=== PATIENT | female | born 2000 | race Hispanic/Latino ===

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

== ENCOUNTER 2021-03-16 23:25 | Outpatient (CLI) | payer MEDICAID ==
[2021-03-16 23:52] VITALS: BP 129/78
[2021-03-17] MEDS ORDERED: LACTATED RINGERS 1,000 ML IV ONE (00:02)
[2021-03-17 00:28] LABS: Bilirubin,Urine NEG (Negative); Blood,Urine NEG (Negative); Color,Urine Colorless (Yellow); Protein,Urine <15 mg/dL mg/dL (Negative); RBC,Urine < 1.0 /HPF (0.0-6.0); Urobilinogen,Urine < 2.0 mg/dL (<2.0); WBC,Urine < 1.0 /HPF (0.0-6.0)
[2021-03-17] MEDS ORDERED: TERBUTALINE 1 MG/1 ML INJ SUB-Q PRN (00:48)
--- NOTE | 2021-03-17 02:22 | Ultrasound Report ---
ULTRASOUND OBSTETRIC LIMITED ULTRASOUND BIOPHYSICAL PROFILE INDICATION / CLINICAL INFORMATION: no movements. RENARD. Clinical Gestational Age (GA) in weeks, days: 33, 3 TECHNIQUE: Transabdominal. COMPARISON: None available. FINDINGS: BREATHING MOVEMENT = 2 GROSS BODY MOVEMENT = 2 TONE = 2 QUALITATIVE AMNIOTIC FLUID VOLUME = 2 TOTAL BIOPHYSICAL SCORE = 8/8 HEART RATE (beats per minute): 135 AMNIOTIC FLUID INDEX (cm) = 12.5 (normal = 7-24 cm) PRESENTATION: Cephalic. ADDITIONAL FINDINGS: None. IMPRESSION: 1. Biophysical Score = 8/8 2. Normal amniotic fluid index. Signer Name: Yissel Malik MD Signed: 03/17/2021 2:18 AM Workstation Name: [id number]
== END 2021-03-17 02:30 | disposition home or self-care (01) ==
LOC: TRG 23:25 → APU 23:34 → TRG 03-17 02:30
PROVIDERS: ATTEND Obstetrics & Gynecology
DX: O36.8130 Decreased fetal movements, third trimester, not applicable or unspecified (principal); O26.893 Other specified pregnancy related conditions, third trimester; R10.30 Lower abdominal pain, unspecified; Z3A.33 33 weeks gestation of pregnancy
CPT/HCPCS: 59025; 76815; 76819; 81001; 96360; 96372; J3105; J7120

== ENCOUNTER 2021-03-26 08:50 | Outpatient (CLI) | payer MEDICAID ==
[2021-03-26 09:17] VITALS: BP 133/71
[2021-03-26] MEDS ORDERED: LACTATED RINGERS 500 ML IV ONE (09:38)
[2021-03-26] MEDS ORDERED: LACTATED RINGERS 1,000 ML IV SCH (09:45)
[2021-03-26 10:28] LABS: Bilirubin,Urine NEG (Negative); Blood,Urine NEG (Negative); Color,Urine Yellow (Yellow); Protein,Urine <15 mg/dL mg/dL (Negative); Urobilinogen,Urine < 2.0 mg/dL (<2.0)
== END 2021-03-26 13:19 | disposition home or self-care (01) ==
LOC: TRG 08:50 → APU 08:52 → TRG 13:19
PROVIDERS: ATTEND Obstetrics & Gynecology
DX: O62.9 Abnormality of forces of labor, unspecified (principal); O26.893 Other specified pregnancy related conditions, third trimester; R10.9 Unspecified abdominal pain; Z3A.34 34 weeks gestation of pregnancy; Z87.891 Personal history of nicotine dependence
CPT/HCPCS: 59025; 81001; 96360

== ENCOUNTER 2021-05-01 10:52 | Outpatient (CLI) | payer MEDICAID ==
[2021-05-01 11:15] VITALS: BP 122/71
== END 2021-05-01 13:12 | disposition home or self-care (01) ==
LOC: TRG 10:52 → APU 10:52 → TRG 13:12
PROVIDERS: ATTEND Student in an Organized Health Care Education/Training Program
DX: Z34.93 Encounter for supervision of normal pregnancy, unspecified, third trimester (principal); Z3A.39 39 weeks gestation of pregnancy
CPT/HCPCS: 59025

== ENCOUNTER 2021-05-05 12:24 | Outpatient (CLI) | payer MEDICAID ==
[2021-05-05 13:02] VITALS: BP 138/72
--- NOTE | 2021-05-05 14:41 | Ultrasound Report ---
ULTRASOUND OBSTETRIC LIMITED ULTRASOUND BIOPHYSICAL PROFILE INDICATION / CLINICAL INFORMATION: Decelerations in the office. Clinical Gestational Age (GA): 40.3 weeks.days COMPARISON: 03/17/21. FINDINGS: BREATHING MOVEMENT = 2 GROSS BODY MOVEMENT = 2 TONE = 2 QUALITATIVE AMNIOTIC FLUID VOLUME = 2 TOTAL BIOPHYSICAL SCORE = 8/8 HEART RATE (beats per minute): Variable at 131 through 149 bpm. AMNIOTIC FLUID INDEX (cm) = 8.6 (normal = 7-24 cm) PRESENTATION: Cephalic. ADDITIONAL FINDINGS: None. IMPRESSION: 1. Biophysical Score = 8/8 2. RENARD 8.6 cm. 3. Variable heart rate. Signer Name: Darren Fagan MD Signed: 05/05/2021 2:37 PM Workstation Name: [email or web address]
== END 2021-05-05 15:35 | disposition home or self-care (01) ==
LOC: TRG 12:24 → APU 12:25 → TRG 15:35
PROVIDERS: ATTEND Obstetrics & Gynecology
DX: Z34.93 Encounter for supervision of normal pregnancy, unspecified, third trimester (principal); Z3A.40 40 weeks gestation of pregnancy
CPT/HCPCS: 36415; 59025; 76815; 76819; 84112

== ENCOUNTER 2021-05-05 22:21 | Inpatient (IN) | payer MEDICAID ==
[2021-05-05] MEDS ORDERED: fentaNYL 100 MCG/2 ML INJ IV PRN (23:33)
[2021-05-05] MEDS ORDERED: OXYTOCIN 10 UNIT/1 ML INJ IM PRN (23:33)
[2021-05-05] MEDS ORDERED: AMPICILLIN/NS 2 GM/100 ML 2 GM/100 ML BAG IV ONE (23:33)
[2021-05-05] MEDS ORDERED: LIDOCAINE (2%) 20 MG/1 ML VIAL 20 ML MDV INFILTRATI ONE (23:33)
[2021-05-05] MEDS ORDERED: MINERAL OIL 30 ML ORAL LIQD PO PRN (23:33)
[2021-05-05] MEDS ORDERED: ePHEDrine SULFATE 50 MG/1 ML INJ IV PRN (23:33)
[2021-05-05] MEDS ORDERED: miSOPROStol 200 MCG TAB PR PRN (23:33)
[2021-05-05] MEDS ORDERED: BUTORPHANOL 2 MG/1 ML INJ IV PRN (23:33)
[2021-05-05] MEDS ORDERED: METHYLERGONOVINE MALEATE 0.2 MG/ML VIAL IM PRN (23:33)
[2021-05-05] MEDS ORDERED: CARBOPROST TROMETHAMINE 250 MCG/1 ML INJ IM PRN (23:33)
[2021-05-05] MEDS ORDERED: LOPERAMIDE 2 MG CAP PO PRN (23:33)
[2021-05-05] MEDS ORDERED: TERBUTALINE 1 MG/1 ML INJ SUB-Q PRN (23:33)
[2021-05-05] MEDS ORDERED: ACETAMINOPHEN 325 MG TAB PO PRN (23:33)
[2021-05-05] MEDS ORDERED: OXYTOCIN DRIP 30 UNITS/500 ML BAG IV SCH (23:45)
--- NOTE | 2021-05-06 00:12 | History and Physical Report ---
History of Present Illness Date of examination: 05/05/21 Date of admission: 05/05/2021 Chief complaint: "water broke" History of present illness: 21 yo, G1 @ 40.4 wks, initiated care with [facility] at 11.2 wks gestation. Her has been complicated by limited care, anemia, bipolar disorder and Rh negative status. She presents to [facility] with reports of "leaking fluids since 2229 tonight". Reports + FM. Denies any VB. Labs: AB negative, antibody negative; HBsAg negative; Hep C negative; rubella immune; VDRL negative; HIV negative; PAP normal; GC/Chlamydia negative; MSAFP/Multiple marker negative; 1 hr gtt - not completed; GBS unknown. Past History Past Medical History: other (Anxiety; Bipolar disorder) Past Surgical History: no surgical history Family/Genetic History: none Social history: single, full code. denies: smoking, alcohol abuse, prescription drug abuse, IV drug use - Obstetrical History Expected Date of Delivery: 05/02/21 Actual Gestation: 40 Week(s) 4 Day(s) : 1 Para: 0 Hx # Term Pregnancies: 0 Number of Pregnancies: 0 Spontaneous Abortions: 0 Induced : 0 Number of Living Children: 0 Medications and Allergies Allergies Allergy/AdvReac Type Severity Reaction Status Date / Time No Known Allergies Allergy Verified 03/17/21 00:04 Home Medications Medication Instructions Recorded Confirmed Last Taken Type One Daily Tablet 1 tab PO DAILY 05/05/21 05/05/21 05/04/21 History Active Meds: Active Medications Acetaminophen (Acetaminophen 325 Mg Tab) 650 mg PO Q4H PRN PRN Reason: Pain, Mild (1-3) Butorphanol Tartrate (Butorphanol 2 Mg/1 Ml Inj) 1 mg IV Q2H PRN PRN Reason: Pain, Moderate(4-6) LABOR PAIN Carboprost Tromethamine (Carboprost Tromethamine 250 Mcg/1 Ml Inj) 250 mcg IM ONCE PRN PRN Reason: Uterine Bleeding Ephedrine Sulfate (Ephedrine Sulfate 50 Mg/1 Ml Inj) 10 mg IV Q2M PRN PRN Reason: Hypotension Fentanyl (Fentanyl 100 Mcg/2 Ml Inj) 100 mcg IV Q2H PRN PRN Reason: Pain,Severe (7-10) LABOR PAIN Lactated Ringer's (Lactated Ringers) 1,000 mls @ 125 mls/hr IV DIRECT SEJAL Oxytocin/Sodium Chloride (Pitocin/Ns 30 Unit/500ml) 30 units in 500 mls @ 40 mls/hr IV TITR SEJAL; Protocol Ampicillin Sodium (Ampicillin/Ns 2 Gm/100 Ml) 2 gm in 100 mls @ 100 mls/hr IV ONCE ONE; Protocol Stop: 05/06/21 00:32 Ampicillin Sodium (Ampicillin/Ns 1 Gm/50 Ml) 1 gm in 50 mls @ 100 mls/hr IV Q4H SEJAL; Protocol Loperamide HCl (Loperamide 2 Mg Cap) 2 mg PO ONCE PRN PRN Reason: give with Hemabate Methylergonovine Maleate (Methylergonovine Maleate 0.2 Mg/Ml Vial) 0.2 mg IM ONCE PRN PRN Reason: Uterine Bleeding Mineral Oil (Mineral Oil 30 Ml Oral Liqd) 30 ml PO QHS PRN PRN Reason: Constipation Misoprostol (Misoprostol 200 Mcg Tab) 800 mcg UT ONCE PRN PRN Reason: Uterine Bleeding Ondansetron HCl (Ondansetron 4 Mg/2 Ml Inj) 4 mg IV Q8H PRN PRN Reason: Nausea And Vomiting Oxytocin (Oxytocin 10 Unit/1 Ml Inj) 10 unit IM ONCE PRN PRN Reason: Uterine Bleeding Terbutaline Sulfate (Terbutaline 1 Mg/1 Ml Inj) 0.25 mg SUB-Q ONCE PRN PRN Reason: Hyperstimulation/Hypertonicity Review of Systems All systems: negative Genitourinary: leakage of fluid (clear fluid) - Vital Signs Vital signs: Vital Signs Pulse Pulse Ox 76 98 05/05/21 23:06 05/05/21 23:06 Temp Pulse Resp BP Pulse Ox 98.1 F 82 18 118/74 99 05/05/21 23:07 05/05/21 23:56 05/05/21 23:07 05/05/21 23:08 05/05/21 23:56 - Physical Exam Breasts: Positive: normal Cardiovascular: Regular rate Lungs: Positive: Normal air movement Abdomen: Positive: other (gravid) Genitourinary (Female): Positive: normal external genitalia, normal perenium Vagina: Positive: other (leaking clear fluid) Uterus: Positive: enlarged (S<D) Extremities: Positive: normal Deep Tendon Reflex Grade: Normal +2 - Obstetrical FHR: category 1 Uterine Contraction Monitor Mode: External Cervical Dilatation: 1 (per RN) Cervical Effacement Percentage: 70 station: -3 Uterine Contraction Frequency (min): 2-4 Uterine Contraction Pattern: Irregular Uterine Tone Measurement Phase: Resting Uterine Contraction Intensity: Mild Results All other labs normal. Assessment and Plan - Patient Problems (1) SROM (spontaneous rupture of membranes) Current Visit: Yes Status: Acute Plan to address problem: Admit to L&D Pain meds as desired per orders Anticipate (2) GBS screening not performed Current Visit: Yes Status: Acute Plan to address problem: Initiate GBS prophylaxis (3) Bipolar 1 disorder Current Visit: Yes Status: Acute (4) Post-dates Current Visit: Yes Status: Acute
[2021-05-06 00:19] LABS: Hematocrit 29.6 % (30.3-42.9); Mean Corpuscular HGB Conc 34 % (30-34); Mean Corpuscular Volume 85 fl (79-97); Platelet Count 251 K/mm3 (140-440); Red Blood Count 3.48 M/mm3 (3.65-5.03); Red Cell Distribution Width 14.6 % (13.2-15.2)
[2021-05-06] MEDS: LACTATED RINGERS 1,000 ML IV SCH ×2 (01:33→05:55)
[2021-05-06] MEDS: ONDANSETRON 4 MG/2 ML INJ IV PRN ×2 (02:37→08:14)
[2021-05-06] MEDS ORDERED: AMPICILLIN/NS 1 GM/50 ML 1 GM/50 ML BAG IV SCH (04:00)
[2021-05-06] MEDS ORDERED: ePHEDrine SULFATE 50 MG/1 ML INJ IV PRN (05:57)
[2021-05-06] MEDS ORDERED: NALOXONE 2 MG/2 ML INJ IV PRN (05:57)
[2021-05-06] MEDS ORDERED: fentaNYL-BUPIV 2 MCG/ML-0.125% 200 MCG/100 ML BAG EPIDURAL SCH (06:00)
--- NOTE | 2021-05-06 06:00 | Anesthesia Consultation ---
Anesthesia Consult and Med Hx Date of service: 05/06/21 - Airway Anesthetic Teeth Evaluation: Poor ROM Head & Neck: Adequate Mental/Hyoid Distance: Adequate Mallampati Class: Class II Intubation Access Assessment: Good - Pulmonary Exam CTA: Yes - Cardiac Exam Cardiac Exam: RRR - Pre-Operative Health Status ASA Pre-Surgery Classification: ASA2 Proposed Anesthetic Plan: Epidural - Pulmonary Hx Smoking: No Hx Asthma: No Hx Respiratory Symptoms: No SOB: No COPD: No Home Oxygen Therapy: No Hx Pneumonia: No Hx Sleep Apnea: No - Cardiovascular System Hx Hypertension: No Hx Coronary Artery Disease: No Hx Heart Attack/AMI: No Hx Angina: No Hx Percutaneous Transluminal Coronary Angioplasty (PTCA): No Hx Cardia Arrhythmia: No Hx Pacemaker: No Hx Internal Defibrillator: No Hx Valvular Heart Disease: No Hx Heart Murmur: No Hx Peripheral Vascular Disease: No - Central Nervous System Hx Neuromuscular Disorder: No Hx Seizures: No CVA: No Hx Back Pain: Yes Hx Psychiatric Problems: Yes (Bipolar, anixety) - Gastrointestinal Hx Ulcer: No Hx Gastroesophageal Reflux Disease: Yes - Endocrine Hx Renal Disease: No Hx End Stage Renal Disease: No Hx Cirrhosis: No Hx Liver Disease: No Hx Insulin Dependent Diabetes: No Hx Non-Insulin Dependent Diabetes: No Hx Thyroid Disease: No Hx Hypothyroidism: No Hx Hyperthyroidism: No - Hematic Hx Anemia: No Hx Sickle Cell Disease: No - Other Systems Hx Alcohol Use: No Hx Substance Use: No Hx Cancer: No Hx Obesity: No
[2021-05-06] MEDS ORDERED: OXYTOCIN DRIP 30 UNITS/500 ML BAG IV SCH ×2 (09:00→17:56)
[2021-05-06 10:28] LABS: Amphetamine Screen,Urine Negative; Benzodiazepines Screen,Urine Negative; Cocaine Screen,Urine Negative; Methadone Screen,Urine Negative; Opiate Screen,Urine Negative
[2021-05-06 11:01] LABS: Cannabinoid Screen,Urine Positive
--- NOTE | 2021-05-06 11:28 | Event Note ---
Date: 05/06/21 Pt comfortable with epidural. Category II tracing. Cervix: /-2. Head well- applied. Continue pitocin augmentation. Continue to monitor maternal and status.
[2021-05-06] MEDS ORDERED: FAMOTIDINE 20 MG/2 ML INJ IV SCH (12:00)
[2021-05-06] MEDS ORDERED: METOCLOPRAMIDE 10 MG/2 ML INJ IV PRN (12:38)
--- NOTE | 2021-05-06 15:27 | Procedure Note ---
OB Delivery Note - Delivery Date of Delivery: 05/06/21 Surgeon: RAQUEL PANTOJA Estimated blood loss: other (600 mL) - Vaginal Delivery presentation: vertex Delivery position: OA Intrapartum events: decreased FHT variability, uterine atony (s/p Methergine 0.2 mg IM ) Delivery augmentation: pitocin Delivery monitor: external FHT, external uterine Route of delivery: Delivery placenta: spontaneous Episiotomy: none Delivery laceration: 1st degree (right vaginal, left periurethral, repaired with 2-0 Chromic in a standard fashion ) Delivery repair: chromic Anesthesia: epidural - Infant A at 1 minute: 8 at 5 minutes: 9 Infant Gender: Female (3029g (6lb 11oz) @ 1447 pm)
[2021-05-06] MEDS ORDERED: PROMETHAZINE 25 MG TAB PO PRN (17:56)
[2021-05-06] MEDS ORDERED: WITCH HAZEL/ GLYCERIN PAD TP PRN (17:56)
[2021-05-06] MEDS ORDERED: BENZOCAINE/MENTHOL 20/0.5% TOP SPRAY 56 GM TP PRN (17:56)
[2021-05-06] MEDS ORDERED: LANOLIN/ZINC/DIMETHICONE (LANSINOH) 7 GM TP PRN ×2 (17:56)
[2021-05-06] MEDS ORDERED: ONDANSETRON 4 MG/2 ML INJ IV PRN (17:56)
[2021-05-06] MEDS ORDERED: diphenhydrAMINE 25 MG CAP PO PRN (17:56)
[2021-05-06] MEDS ORDERED: HYDROcodone/ACETAMINOPHEN 5-325 MG TAB PO PRN (17:56)
[2021-05-06] MEDS ORDERED: IBUPROFEN 600 MG TAB PO SCH (17:56)
[2021-05-06] MEDS ORDERED: MAGNESIUM HYDROXIDE (MOM) ORAL LIQD UDC PO PRN (17:56)
[2021-05-06] MEDS ORDERED: PROMETHAZINE 25 MG RECT SUPP PR PRN (17:56)
--- NOTE | 2021-05-06 22:37 | Post Anesthesia Evaluation ---
- Post Anesthesia Evaluation Patient Participated: Yes Airway Patent: Yes Stable Respiratory Function: Yes Nausea/Vomiting: No Temp > 96.8F: Yes Pain Manageable: Yes Adequeate Hydration: Yes Anesthesia Complications: No Block Receding Appropriately: Yes Patient on Ventilator: No
[2021-05-07] MEDS: FERROUS SULFATE 325 MG TAB PO SCH ×2 (01:16→11:01)
[2021-05-07 04:36] LABS: Hematocrit 26.2 % (30.3-42.9); Hemoglobin 8.5 gm/dl (10.1-14.3)
[2021-05-07] MEDS ORDERED: TETANUS,DIPH,PERTUSS(ACELL) VACCINE 0.5 ML SYRINGE IM ONE (06:00)
[2021-05-07] MEDS ORDERED: PRENATAL VIT27-FE FUMARATE-FOLIC ACID VIT TAB PO SCH (10:00)
--- NOTE | 2021-05-07 13:38 | Discharge Summary ---
Providers - Providers Date of Admission: 05/05/21 23:33 Date of discharge: 05/07/21 Attending physician: BRANDT ADAME 05/06/21 17:56 Consult to Foreign Car [employer]ic [CONS] Routine Reason For Exam: assistance with , SNS Primary care physician: BRANDT ADAME Hospitalization Reason for admission: rupture of membranes Delivery: Episiotomy: none Laceration: 1st degree (healing as expected) Other procedures: none complications: none Discharge diagnosis: IUP at term delivered baby: female Hospital course: 21 yo, G1 @ 40.4 wks, initiated care with [facility] at 11.2 wks gestation. Her has been complicated by limited care, anemia, bipolar disorder and Rh negative status. She presents to [facility] with reports of "leaking fluids since 2229 ton". Reports + FM. Denies any VB. Labs: AB negative, antibody negative; HBsAg negative; Hep C negative; rubella immune; VDRL negative; HIV negative; PAP normal; GC/Chlamydia negative; MSAFP/Multiple marker negative; 1 hr gtt - not completed; GBS unknown. Condition at discharge: Good Disposition: 01 HOME / SELF CARE / HOMELESS - Discharge Diagnoses (1) Bipolar 1 disorder Status: Acute (2) Rh negative status during in third trimester, antepartum Status: Acute Comment: Rhogam workup (3) Anemia Status: Acute Qualifiers: Anemia type: iron deficiency Comment: Asymptomatic Iron rich diet Continue daily oral iron supplementation as ordered Plan - Discharge Medications Prescriptions: Ferrous Sulfate [Feosol 325 MG tab] 325 mg PO BID 30 Days #60 tablet Ibuprofen [Motrin 600 MG tab] 600 mg PO Q8H 7 Days #21 tablet - Provider Discharge Summary Activity: routine, no sex for 6 weeks, no heavy lifting 4 weeks, no strenuous exercise Diet: other (Iron rich diet) Instructions: routine Additional instructions: [] Smoking cessation referral if applicable(refer to patient education folder for contact #) [] Refer to [facility] Booklet Call your doctor immediately for: * Fever > 100.5 * Heavy vaginal bleeding ( >1 pad per hour) * Severe persistent headache * Shortness of breath * Reddened, hot, painful area to leg or breast * Drainage or odor from incision. * Keep laceration site clean and dry at all times and follow doctor's instructions regarding bathing/showering - Follow up plan Follow up: BRANDT ADAME MD [Primary Care Provider] - 6 Weeks
[2021-05-07] MEDS ORDERED: MEASLES, MUMPS & RUBELLA 12,500 UNIT/0.5 ML VACCINE SUB-Q ONE (15:28)
[2021-05-07 20:57] VITALS: BP 128/80
== END 2021-05-07 21:00 | disposition home or self-care (01) | DRG 775 ==
LOC: TRG 22:21 → APU 23:05 → TRG 23:33 → LD 23:33 → OB 05-06 17:05
PROVIDERS: ADMIT Obstetrics & Gynecology; ATTEND Obstetrics & Gynecology
PROC: 10E0XZZ Delivery of Products of Conception, External Approach (ICD-10-PCS; principal; 2021-05-06)
PROC: 3E0R3BZ Introduction of Anesthetic Agent into Spinal Canal, Percutaneous Approach (ICD-10-PCS; 2021-05-06)
PROC: 00HU33Z Insertion of Infusion Device into Spinal Canal, Percutaneous Approach (ICD-10-PCS; 2021-05-06)
PROC: 0HQ9XZZ Repair Perineum Skin, External Approach (ICD-10-PCS; 2021-05-06)
PROC: 0UQMXZZ Repair Vulva, External Approach (ICD-10-PCS; 2021-05-06)
PROC: 3E0234Z Introduction of Serum, Toxoid and Vaccine into Muscle, Percutaneous Approach (ICD-10-PCS; 2021-05-07)
PROC: 3E0234Z Introduction of Serum, Toxoid and Vaccine into Muscle, Percutaneous Approach (ICD-10-PCS; 2021-05-07)
DX: O48.0 Post-term pregnancy (principal); Z37.0 Single live birth; O99.344 Other mental disorders complicating childbirth; Z3A.40 40 weeks gestation of pregnancy; F41.9 Anxiety disorder, unspecified; F31.9 Bipolar disorder, unspecified; Z20.822 Contact with and (suspected) exposure to COVID-19; Z23 Encounter for immunization; O99.62 Diseases of the digestive system complicating childbirth; K21.9 Gastro-esophageal reflux disease without esophagitis; O76 Abnormality in fetal heart rate and rhythm complicating labor and delivery; O62.2 Other uterine inertia; O71.82 Other specified trauma to perineum and vulva; O70.0 First degree perineal laceration during delivery; O26.893 Other specified pregnancy related conditions, third trimester; Z67.31 Type AB blood, Rh negative; O90.81 Anemia of the puerperium; D50.9 Iron deficiency anemia, unspecified
CPT/HCPCS: 36415; 59025; 76815; 76819; 80307; 84112; 85014; 85018; 85027; 85461; 86592; 86850; 86900; 86901; G0378; J0290; J0595; J2210; J2405; J2590; J2765; J2790; J3490; J7120; Q0169; U0003